=== PATIENT | female | born 1965 | race Two or more races ===

== ENCOUNTER 2020-07-07 12:45 | Inpatient (IN) | payer OTHER ==
[~2020-07-07] VITALS: Ht 157.5 cm; Wt 63.5 kg
[2020-07-07] MEDS ORDERED: OMEPRAZOLE-BIC1 EAC1 PO (16:21)
== END 2020-07-12 10:30 | disposition home or self-care (01) | DRG 358 ==
LOC: O/R 07-10 05:00 → SURG 07-10 05:00 → OB/GYN 07-10 07:00 → SURG 07-10 12:54
PROVIDERS: ADMIT Specialist; ATTEND Specialist
PROC: 0UT20ZZ Resection of Bilateral Ovaries, Open Approach (ICD-10-PCS; 2020-07-10)
PROC: 0UB70ZZ Excision of Bilateral Fallopian Tubes, Open Approach (ICD-10-PCS; 2020-07-10)
PROC: 0WBH0ZX Excision of Retroperitoneum, Open Approach, Diagnostic (ICD-10-PCS; principal; 2020-07-10 07:00)
DX: D48.3 Neoplasm of uncertain behavior of retroperitoneum (principal); N83.291 Other ovarian cyst, right side; N94.89 Other specified conditions associated with female genital organs and menstrual cycle